=== PATIENT | female | born 1950 | race African-American/Black ===

== ENCOUNTER 2022-01-26 09:26 | Inpatient (IN) | payer MEDICARE, MEDICAID ==
[~2022-01-26] VITALS: Ht 162.6 cm; Wt 88.5 kg
[2022-01-26] MEDS ORDERED: SODIUM CHLORIDE 0.9% 1,000 ML IV ONE (09:45)
[2022-01-26] MEDS ORDERED: SODIUM CHLORIDE 0.9% 1000ML BAG (SEPSIS BOLUS) IV ONE (09:45)
[2022-01-26 10:58] LABS: CHLORIDE 103 mEq/L (98-107)
[2022-01-26 11:00] LABS: BASOPHILS % 0.1 % (0.0-2.0); MEAN CORPUSCULAR HEMOGLOBIN 28.4 pg (28.0-32.0); MEAN CORPUSCULAR VOLUME 88.3 fL (81.0-99.0); MEAN PLATELET VOLUME 6.6 fl (7.4-10.4); NEUTROPHILS % 88.9 % (40.0-76.0); PLATELET 451 x1000/uL (130-400); RED BLOOD CELL COUNT 1.58 mill/uL (4.2-5.4); RED CELL DISTRIBUTION WIDTH 13.5 % (11.6-14.6)
[2022-01-26 11:06] LABS: HEMOGLOBIN. 4.5 g/dL (12.0-16.0); INR 1.2; PROTHROMBIN TIME 12.4 sec (9.6-11.0)
[2022-01-26] MEDS ORDERED: NOREPINEPHRINE 8MG/250ML PMX 250 ML IV STA (12:05)
[2022-01-26] MEDS ORDERED: DILTIAZEM HCL 60MG TABLET PO ONE (12:15)
[2022-01-26] MEDS ORDERED: DILTIAZEM HCL 30MG TABLET PO SCH (13:30)
[2022-01-26 13:54] LABS: CLARITY URINE TURBID (CLEAR); COLOR URINE RED (YELLOW); KETONES URINE NEGATIVE (NEGATIVE); LEUKOCYTE ESTERASE URINE 3+ (NEGATIVE); NITRITE URINE POSITIVE (NEGATIVE); OCCULT BLOOD URINE 3+ (NEGATIVE); PROTEIN URINE 2+ (NEGATIVE); SPECIFIC GRAVITY URINE 1.015 (1.005-1.030); UROBILINOGEN URINE 0.2 E.U./dL (0.2-1.0)
[2022-01-26] MEDS ORDERED: ACETAMINOPHEN 325MG TABLET PO PRN ×3 (15:45→17:15)
[2022-01-26] MEDS ORDERED: DIGOXIN 500MCG/2ML AMP IV NR (15:45)
[2022-01-26] MEDS ORDERED: ONDANSETRON HCL 4MG/2ML INJ IV PRN ×2 (15:45→17:15)
[2022-01-26 16:00] LABS: HEMATOCRIT 23.5 % (36.0-48.0); HEMOGLOBIN 7.6 g/dL (12.0-16.0); MEAN CORPUSCULAR HEMOGLOBIN 28.2 pg (28.0-32.0); MEAN CORPUSCULAR VOLUME 87.2 fL (81.0-99.0); PLATELET 464 x1000/uL (130-400); RED CELL DISTRIBUTION WIDTH 14.4 % (11.6-14.6)
[2022-01-26] MEDS ORDERED: CEFTRIAXONE 1 G PREMIX 50 ML IV SCH (16:00)
[2022-01-26] MEDS: MIDODRINE HCL 5MG TABLET PO SCH (17:14)
[2022-01-26] MEDS ORDERED: DOCUSATE SODIUM 100MG CAPSULE PO PRN (17:15)
[2022-01-26] MEDS ORDERED: TRAMADOL 50MG TABLET PO PRN (17:15)
[2022-01-26] MEDS ORDERED: MAGNESIUM/ALUMINUM HYDROXIDE/SIMETHICONE 30ML UDC PO PRN (17:15)
[2022-01-26] MEDS ORDERED: NOREPINEPHRINE 8 MG in DEXT 5% WATER 242 ML IV PRN (17:15)
[2022-01-26] MEDS ORDERED: CLONIDINE 0.1MG TABLET PO PRN (17:15)
[2022-01-26] MEDS ORDERED: IPRATROPIUM/ALBUTEROL 0.5-3(2.5)MG/3ML NEB NEB PRN (17:15)
[2022-01-26] MEDS ORDERED: NITROGLYCERIN 0.4MG TABLET SL SL PRN (17:15)
[2022-01-26] MEDS ORDERED: GUAIFENESIN 200MG/10ML SUGAR FREE UDC PO PRN (17:15)
[2022-01-26] MEDS ORDERED: NALOXONE HCL 0.4MG/ML VIAL IV PRN (17:30)
[2022-01-26] MEDS ORDERED: LEVOFLOXACIN 500MG PREMIX 100 ML IV SCH (17:30)
[2022-01-26] MEDS: DEXT 5%/LACTATED RINGERS 1,000 ML IV SCH (17:43)
[2022-01-26 18:20] LABS: T4 FREE 1.11 ng/dL (0.76-1.46)
[2022-01-26 18:56] LABS: FOLIC ACID (FOLATE) SERUM 15.9 ng/mL (>5.38)
[2022-01-26] MEDS: PANTOPRAZOLE SODIUM 40 MG/VIAL IV SCH (20:47)
[2022-01-26] MEDS ORDERED: ZOLPIDEM TARTRATE 5MG TABLET PO PRN (21:00)
[2022-01-26 23:37] LABS: CREATINE KINASE MB FRACTION 8.4 ng/mL (0.5-3.6)
[2022-01-27] VITALS (10 sets, daily range): BP systolic 84–133; BP diastolic 40–79
[2022-01-27] MEDS: DEXT 5%/LACTATED RINGERS 1,000 ML IV SCH (05:38)
[2022-01-27 06:36] LABS: BASOPHILS % 0.1 % (0.0-2.0); LYMPHOCYTES % 10.9 % (20.0-50.0); MEAN CORPUSCULAR HEMOGLOBIN 29.2 pg (28.0-32.0); MEAN CORPUSCULAR VOLUME 84.7 fL (81.0-99.0); MEAN PLATELET VOLUME 6.7 fl (7.4-10.4); MONOCYTES % 5.3 % (2.0-8.0); NEUTROPHILS % 83.7 % (40.0-76.0); PLATELET 342 x1000/uL (130-400); RED BLOOD CELL COUNT 2.11 mill/uL (4.2-5.4); RED CELL DISTRIBUTION WIDTH 14.7 % (11.6-14.6)
[2022-01-27 06:53] LABS: CREATINE KINASE MB FRACTION 7.4 ng/mL (0.5-3.6)
[2022-01-27 07:10] LABS: CHLORIDE 109 mEq/L (98-107)
[2022-01-27 07:14] LABS: HEMATOCRIT. 17.9 % (36.0-48.0); HEMOGLOBIN. 6.2 g/dL (12.0-16.0)
[2022-01-27 07:20] LABS: PHOSPHORUS 2.7 mg/dL (2.5-4.9)
[2022-01-27] MEDS ORDERED: METOPROLOL TARTRATE 50MG TABLET PO SCH (09:00)
[2022-01-27] MEDS: MIDODRINE HCL 5MG TABLET PO SCH ×3 (09:00→17:57)
[2022-01-27] MEDS ORDERED: CEFTRIAXONE 1 G PREMIX 50 ML IV SCH (09:00)
[2022-01-27] MEDS ORDERED: DILTIAZEM HCL 30MG TABLET PO SCH (12:00)
[2022-01-27] MEDS: CEFTRIAXONE 1,000 MG in DEXTROSE 5% WATER 50 ML IV SCH (12:45)
[2022-01-27] MEDS: LEVOFLOXACIN 500MG PREMIX 100 ML IV SCH (12:45)
[2022-01-27] MEDS ORDERED: KETOROLAC 30MG/ML VIAL IV NR (15:30)
[2022-01-27] MEDS: DIGOXIN 500MCG/2ML AMP IV SCH (17:58)
[2022-01-27 21:29] LABS: *BARBITURATES SCREEN URINE NEGATIVE (NEGATIVE); CANNABINOID URINE SCREEN NEGATIVE (NEGATIVE); OPIATES URINE SCREEN PRESUMTIVE POSITIVE (NEGATIVE); PHENCYCLIDINE URINE SCREEN NEGATIVE (NEGATIVE)
[2022-01-27 21:30] LABS: *AMPHETAMINES SCREEN URINE NEGATIVE (NEGATIVE); *BENZODIAZEPINES SCREEN URINE NEGATIVE (NEGATIVE); *COCAINE SCREEN URINE NEGATIVE (NEGATIVE); METHADONE URINE SCREEN NEGATIVE (NEGATIVE)
[2022-01-27] MEDS: PANTOPRAZOLE SODIUM 40 MG/VIAL IV SCH (22:20)
[2022-01-27] MEDS: METOPROLOL TARTRATE 25MG TABLET PO SCH (22:21)
[2022-01-27 23:52] LABS: HEMATOCRIT 23.6 % (36.0-48.0); HEMOGLOBIN 7.6 g/dL (12.0-16.0)
[2022-01-28] VITALS: BP 126/57
[2022-01-28 04:00] VITALS: BP 143/82
[2022-01-28 08:00] VITALS: BP 112/50
[2022-01-28] MEDS: METOPROLOL TARTRATE 25MG TABLET PO SCH ×2 (08:48→21:00)
[2022-01-28] MEDS: DEXT 5%/LACTATED RINGERS 1,000 ML IV SCH ×2 (08:49→22:35)
[2022-01-28] MEDS: MIDODRINE HCL 5MG TABLET PO SCH ×3 (08:49→17:00)
[2022-01-28 12:00] VITALS: BP 117/65
[2022-01-28] MEDS: LEVOFLOXACIN 500MG PREMIX 100 ML IV SCH (15:14)
[2022-01-28 15:30] LABS: HEMATOCRIT 26.2 % (36.0-48.0); HEMOGLOBIN 8.5 g/dL (12.0-16.0)
[2022-01-28 16:00] VITALS: BP 124/59
[2022-01-28] MEDS: CEFTRIAXONE 1,000 MG in DEXTROSE 5% WATER 50 ML IV SCH (17:50)
[2022-01-28] MEDS: DIGOXIN 500MCG/2ML AMP IV SCH (17:51)
[2022-01-28 20:00] VITALS: BP 111/59
[2022-01-28] MEDS: PANTOPRAZOLE SODIUM 40 MG/VIAL IV SCH (21:07)
[2022-01-28 22:34] LABS: HEMATOCRIT 26.5 % (36.0-48.0); HEMOGLOBIN 8.6 g/dL (12.0-16.0)
[2022-01-29] VITALS: BP 101/50
[2022-01-29 04:00] VITALS: BP 115/61
[2022-01-29 06:58] LABS: HEMATOCRIT 24.1 % (36.0-48.0); HEMOGLOBIN 8.1 g/dL (12.0-16.0)
[2022-01-29 07:49] VITALS: BP 125/63
[2022-01-29] MEDS: MIDODRINE HCL 5MG TABLET PO SCH ×3 (08:17→17:31)
[2022-01-29] MEDS: METOPROLOL TARTRATE 25MG TABLET PO SCH ×2 (08:17→21:00)
[2022-01-29] MEDS: LEVOFLOXACIN 500MG PREMIX 100 ML IV SCH (10:00)
[2022-01-29 11:39] VITALS: BP 102/47
[2022-01-29] MEDS: DEXT 5%/LACTATED RINGERS 1,000 ML IV SCH (11:56)
[2022-01-29] MEDS: CEFTRIAXONE 1,000 MG in DEXTROSE 5% WATER 50 ML IV SCH (11:56)
[2022-01-29] MEDS: IRON SUCROSE COMPLEX 100 MG/5 ML ML IV SCH (11:56)
[2022-01-29 16:00] VITALS: BP 115/40
[2022-01-29] MEDS: DIGOXIN 500MCG/2ML AMP IV SCH (17:30)
[2022-01-29 20:00] VITALS: BP 113/50
[2022-01-29] MEDS: PANTOPRAZOLE SODIUM 40 MG/VIAL IV SCH (21:25)
[2022-01-30] VITALS: BP 124/55
[2022-01-30] MEDS: DEXT 5%/LACTATED RINGERS 1,000 ML IV SCH ×2 (01:36→14:35)
[2022-01-30 04:00] VITALS: BP 105/51
[2022-01-30 08:00] VITALS: BP 117/63
[2022-01-30] MEDS: MIDODRINE HCL 5MG TABLET PO SCH ×3 (08:56→17:38)
[2022-01-30] MEDS: METOPROLOL TARTRATE 25MG TABLET PO SCH ×2 (08:57→20:57)
[2022-01-30] MEDS: IRON SUCROSE COMPLEX 100 MG/5 ML ML IV SCH (11:37)
[2022-01-30 12:00] VITALS: BP 112/60
[2022-01-30] MEDS: CEFTRIAXONE 1,000 MG in DEXTROSE 5% WATER 50 ML IV SCH (12:48)
[2022-01-30] MEDS: LEVOFLOXACIN 500MG PREMIX 100 ML IV SCH (14:20)
[2022-01-30 16:12] VITALS: BP 109/58
[2022-01-30] MEDS: DIGOXIN 500MCG/2ML AMP IV SCH (18:53)
[2022-01-30 20:00] VITALS: BP 115/56
[2022-01-30] MEDS: PANTOPRAZOLE SODIUM 40 MG/VIAL IV SCH (20:57)
[2022-01-31] VITALS: BP 110/50
[2022-01-31 04:00] VITALS: BP 119/54
[2022-01-31 09:00] VITALS: BP 122/64
[2022-01-31] MEDS ORDERED: FE300LUD MT (09:42)
[2022-01-31] MEDS ORDERED: SENN-257 MT (09:42)
[2022-01-31] MEDS: METOPROLOL TARTRATE 25MG TABLET PO SCH (09:55)
[2022-01-31] MEDS: MIDODRINE HCL 5MG TABLET PO SCH (09:55)
[2022-01-31 10:48] VITALS: BP 118/62
== END 2022-01-31 12:30 | disposition home or self-care (01) | DRG 871 ==
LOC: ER 09:26 → 7EST 12:58 → EDBEDREQSVC 13:00 → EDBEDREQ 13:00 → EDBEDREQTM 13:00 → SUPCPDRO 17:14 → EDBEDREQTM 20:30 → EDBEDREQSVC 20:30 → ENRESERV 22:40
PROVIDERS: ADMIT Internal Medicine; ATTEND Internal Medicine
PROC: 30233N1 Transfusion of Nonautologous Red Blood Cells into Peripheral Vein, Percutaneous Approach (ICD-10-PCS; principal; 2022-01-26)
DX: A41.9 Sepsis, unspecified organism (principal); R57.8 Other shock; I21.A1 Myocardial infarction type 2; G92.8 Other toxic encephalopathy; D62 Acute posthemorrhagic anemia; E87.1 Hypo-osmolality and hyponatremia; N39.0 Urinary tract infection, site not specified; I50.32 Chronic diastolic (congestive) heart failure; E44.0 Moderate protein-calorie malnutrition; E03.9 Hypothyroidism, unspecified; E83.51 Hypocalcemia; F17.210 Nicotine dependence, cigarettes, uncomplicated; I11.0 Hypertensive heart disease with heart failure; I25.10 Atherosclerotic heart disease of native coronary artery without angina pectoris; I48.91 Unspecified atrial fibrillation; I49.3 Ventricular premature depolarization; I27.20 Pulmonary hypertension, unspecified; F32.A Depression, unspecified; F41.9 Anxiety disorder, unspecified; F43.21 Adjustment disorder with depressed mood; Z20.822 Contact with and (suspected) exposure to COVID-19; N95.0 Postmenopausal bleeding; Z78.0 Asymptomatic menopausal state; Z79.01 Long term (current) use of anticoagulants; Z68.33 Body mass index [BMI] 33.0-33.9, adult
CPT/HCPCS: 36415; 71045; 76830; 76856; 80048; 80053; 80061; 80305; 81003; 82550; 82553; 82607; 82746; 83036; 83540; 83550; 83605; 83735; 84100; 84145; 84439; 84443; 84484; 85014; 85018; 85025; 85027; 86850; 86900; 86920; 87426; 93005; 93306; 93970; 99291; C9113; J0696; J1160; J1885; J1956; J3490; J7030; J7060; P9016